=== PATIENT | male | born 1975 | race African-American/Black ===

== ENCOUNTER 2020-09-22 20:58 | Emergency (ER) | payer OTHER ==
[~2020-09-22] VITALS: Ht 177.8 cm; Wt 99.0 kg
[2020-09-22 21:41] VITALS: BP 177/110
== END 2020-09-22 22:45 | disposition home or self-care (01) ==
LOC: ER 20:58
DX: H66.91 Otitis media, unspecified, right ear (principal)
CPT/HCPCS: 99283